=== PATIENT | male | born 1965 | race Caucasian/White ===

== ENCOUNTER → 2021-02-28 | Outpatient (CLI) | payer BC ==
[~2021-02-28] MED LIST: AZIT500T PO; BENZ200C25 PO; OFLO5DRO2 OP; PRCD5U PO
--- NOTE | 2021-02-28 16:23 | Diagnostic Imaging Report ---
CHEST PA/LAT (2 VIEW) Indication: Cough Comparison: None available. Findings: No pulmonary mass or consolidation. No pleural effusion or pneumothorax. Normal heart size and mediastinal contours. Impression: No acute cardiopulmonary process. Dictated by: Dictated on workstation # [id number]
== END ==
LOC: RAD 15:48
PROVIDERS: ATTEND Nurse Practitioner Family
DX: U07.1 COVID-19 (principal); J12.82 Pneumonia due to coronavirus disease 2019
CPT/HCPCS: 71046

== ENCOUNTER 2021-03-11 23:57 | Emergency (ER) | payer BC ==
[~2021-03-11] VITALS: Ht 180.3 cm; Wt 99.7 kg
--- OUTSIDE RECORDS SUMMARY | 2021-03-12 00:01 | XMS REPORT | Clinical Summary ---
Author Author [facility] Organization [facility] Address Unknown Phone Unavailable Care Team Providers Care Property Analyst Name Role Phone PCP Unavailable Allergies Not on File Medications Not on file Active Problems Not on file Social History Date Tobacco Use Types Packs/Day Years Used Never Assessed Sex Assigned at Date Recorded Not on file Last Filed Vital Signs Not on file Plan of Treatment Not on file Results Not on filefrom Last 3 Months
[2021-03-12 00:20] VITALS: BP 141/81
[2021-03-12 01:09] LABS: ALBUMIN 3.2 GM/DL (3.2-4.5)
[2021-03-12 01:12] LABS: TOTAL PROTEIN 7.2 GM/DL (6.4-8.2)
[2021-03-12 01:13] LABS: BILIRUBIN,TOTAL 2.1 MG/DL (0.1-1.0)
[2021-03-12 01:15] LABS: CREATININE SERUM 0.78 MG/DL (0.60-1.30)
[2021-03-12 01:22] LABS: BASOPHILS % (AUTO) 0 % (0-10); EOSINOPHILS % (AUTO) 0 % (0-10); HEMATOCRIT 42 % (40-54); HEMOGLOBIN 14.1 g/dL (13.3-17.7); LYMPHOCYTES # (AUTO) 1.1 10^3/uL (1.0-4.0); LYMPHOCYTES % (AUTO) 5 % (12-44); MEAN CORPUSCULAR HEMOGLOBIN 32 pg (25-34); MEAN CORPUSCULAR HGB CONC 34 g/dL (32-36); MEAN CORPUSCULAR VOLUME 94 fL (80-99); MEAN PLATELET VOLUME 12.3 fL (9.0-12.2); MONOCYTES % (AUTO) 9 % (0-12); NEUTROPHILS # (AUTO) 19.6 10^3/uL (1.8-7.8); NEUTROPHILS % (AUTO) 85 % (42-75); PLATELET COUNT 194 10^3/uL (130-400); WHITE BLOOD COUNT 23.2 10^3/uL (4.3-11.0)
--- NOTE | 2021-03-12 01:25 | ED General ---
General Chief Complaint: Respiratory Problems Stated Complaint: PREV COVID +/COUGH/CONGESTION/BLOODY MUCUS Nursing Triage Note: Pt arrives via POV from home for c/o cough/congestion; reports testing positive for COVID 14 days ago at [facility]. Pt states he has had persistant cough/congestion since that time, also states "I'm having pain in my ribs." while pointing to his right side. Source of Information: Patient Exam Limitations: No Limitations History of Present Illness Date Seen by Provider: Mar 12, 2021 Time Seen by Provider: 00:58 Initial Comments This 55-year-old gentleman presents to the emergency room with complaints of cough and right lower chest pain. He was diagnosed with COVID-19 about 2 weeks ago. He did seem to recover and returned to work but then a couple of days ago developed the pain in the right chest and cough. He is noted to have fever during assessment. He has coughed up some blood-tinged sputum. Allergies and Home Medications Allergies Coded Allergies: Bacitracin Zinc (Verified Allergy, Intermediate, RASH, 03/03/12) bacitracin (Verified Allergy, Intermediate, RASH, 03/03/12) neomycin sulfate (Verified Allergy, Intermediate, RASH, 03/03/12) polymyxin B (Verified Allergy, Intermediate, RASH, 03/03/12) Patient Home Medication List Home Medication List Reviewed: Yes Azithromycin (Zithromax) 500 Mg Tablet, 500 MG PO DAILY, (Reported) Entered as Reported by: BAKARI CHADWICK on 03/03/12 1225 Benzonatate (Benzonatate) 200 Mg Capsule, 1 EACH PO Q8HR PRN, (Reported) Entered as Reported by: BAKARI CHADWICK on 03/03/12 1225 Levofloxacin (Levofloxacin) 750 Mg Tablet, 750 MG PO DAILY Prescribed by: MARY CLEARY on 03/12/21 0355 Ofloxacin (Ofloxacin) 5 Ml Drops, 5 ML OP PRN, (Reported) Entered as Reported by: BAKARI CHADWICK on 03/03/12 1225 Promethazine/Codeine (Phenergan W/Codeine Syrup) 5 Ml Syrp, 0 PO Q4H Prescribed by: VASQUEZ DUMAS on 03/03/12 1317 Review of Systems Review of Systems Constitutional: see HPI EENTM: no symptoms reported Respiratory: see HPI Cardiovascular: no symptoms reported Gastrointestinal: no symptoms reported Genitourinary: no symptoms reported Musculoskeletal: no symptoms reported Skin: no symptoms reported Psychiatric/Neurological: No Symptoms Reported Hematologic/Lymphatic: No Symptoms Reported Immunological/Allergic: no symptoms reported Past Wlxtccn-Fihvik-Qtxxxt Hx Patient Social History Tobacco Use?: Yes Tobacco type used: Cigarettes Smoking Status: Current Everyday Smoker Use of E-Cig and/or Vaping dev: No Substance use?: No Alcohol Use?: No Pt feels they are or have been: No Immunizations Up To Date Influenza Vaccine Up-to-Date: No; Not Current Past Medical History Surgeries: Yes Abdominal (Right inguinal hernia), Orthopedic (left biceps) Respiratory: Yes (Covid 10 March 2019) Cardiac: No Neurological: No Genitourinary: Yes Benign Prostatic Hyperpl Gastrointestinal: No Musculoskeletal: No Endocrine: No HEENT: No Cancer: No Psychosocial: No Physical Exam-Suspected Sepsis Physical Exam Vital Signs Vital Signs - First Documented 03/12/21 00:20 Temp 39.4 Pulse 87 Resp 18 B/P (MAP) 141/81 (101) Pulse Ox 98 O2 Delivery Room Air Capillary Refill : Less Than 3 Seconds Blood Pressure Mean: 101 Height, Weight, BMI Height: '" Weight: lbs. oz. kg; 30.00 BMI Method: General Appearance: WD/WN, Mild Distress HEENT: PERRL/EOMI, Normal ENT Inspection Neck: Normal Inspection; No JVD Respiratory: No Accessory Muscle Use, No Respiratory Distress, Crackles (right base) Cardiovascular: Regular Rate, Rhythm, No Edema Gastrointestinal: Non Tender, Soft Extremity: Normal Inspection, No Pedal Edema Neurologic/Psychiatric: Alert, Oriented x3, No Motor/Sensory Deficits, Normal Mood/Affect, bronc buster II-XII Norm as Tested Skin: normal color, warm/dry Focused Exam Lactate Level 03/12/21 00:45: Lactic Acid Level 0.89 Lactic Acid Level Laboratory Tests Test 03/12/21 00:45 Lactic Acid Level 0.89 MMOL/L (0.50-2.00) Progress/Results/Core Measures Suspected Sepsis SIRS Temperature: Pulse: 87 Respiratory Rate: 18 Laboratory Tests 03/12/21 00:45: White Blood Count 23.2H Blood Pressure 141 /81 Mean: 101 03/12/21 00:45: Lactic Acid Level 0.89 Laboratory Tests 03/12/21 00:45: Creatinine 0.78, INR Comment 1.1, Platelet Count 194, Total Bilirubin 2.1H Results/Orders Lab Results Laboratory Tests Test 03/12/21 00:45 03/12/21 01:25 Range/Units White Blood Count 23.2 H 4.3-11.0 10^3/uL Red Blood Count 4.41 4.30-5.52 10^6/uL Hemoglobin 14.1 13.3-17.7 g/dL Hematocrit 42 40-54 % Mean Corpuscular Volume 94 80-99 fL Mean Corpuscular Hemoglobin 32 25-34 pg Mean Corpuscular Hemoglobin Concent 34 32-36 g/dL Red Cell Distribution Width 12.0 10.0-14.5 % Platelet Count 194 130-400 10^3/uL Mean Platelet Volume 12.3 H 9.0-12.2 fL Immature Granulocyte % (Auto) 2 % Neutrophils (%) (Auto) 85 H 42-75 % Lymphocytes (%) (Auto) 5 L 12-44 % Monocytes (%) (Auto) 9 0-12 % Eosinophils (%) (Auto) 0 0-10 % Basophils (%) (Auto) 0 0-10 % Neutrophils # (Auto) 19.6 H 1.8-7.8 10^3/uL Lymphocytes # (Auto) 1.1 1.0-4.0 10^3/uL Monocytes # (Auto) 2.0 H 0.0-1.0 10^3/uL Eosinophils # (Auto) 0.0 0.0-0.3 10^3/uL Basophils # (Auto) 0.0 0.0-0.1 10^3/uL Immature Granulocyte # (Auto) 0.4 H 0.0-0.1 10^3/uL Neutrophils % (Manual) 81 % Lymphocytes % (Manual) 7 % Monocytes % (Manual) 10 % Band Neutrophils 2 % Blood Morphology Comment NORMAL Prothrombin Time 14.9 H 12.2-14.7 SEC INR Comment 1.1 0.8-1.4 Activated Partial Thromboplast Time 32 24-35 SEC D-Dimer 2.29 H 0.00-0.49 UG/ML Sodium Level 125 *L 135-145 MMOL/L Potassium Level 4.0 3.6-5.0 MMOL/L Chloride Level 90 L 98-107 MMOL/L Carbon Dioxide Level 26 21-32 MMOL/L Anion Gap 9 5-14 MMOL/L Blood Urea Nitrogen 12 7-18 MG/DL Creatinine 0.78 0.60-1.30 MG/DL Estimat Glomerular Filtration Rate 104 BUN/Creatinine Ratio 15 Glucose Level 128 H 70-105 MG/DL Lactic Acid Level 0.89 0.50-2.00 MMOL/L Calcium Level 9.0 8.5-10.1 MG/DL Corrected Calcium 9.6 8.5-10.1 MG/DL Total Bilirubin 2.1 H 0.1-1.0 MG/DL Aspartate Amino Transf (AST/SGOT) 18 5-34 U/L Alanine Aminotransferase (ALT/SGPT) 31 0-55 U/L Alkaline Phosphatase 123 40-136 U/L C-Reactive Protein High Sensitivity 32.72 H 0.00-0.50 MG/DL Total Protein 7.2 6.4-8.2 GM/DL Albumin 3.2 3.2-4.5 GM/DL Procalcitonin 0.82 H <0.10 NG/ML Influenza Type A Antigen NEGATIVE NEGATIVE Influenza Type B Antigen NEGATIVE NEGATIVE SARS-CoV-2 RNA (RT-PCR) Detected H Not Detecte My Orders Orders - MARY TAYLOR MD Cbc With Automated Diff (03/12/21 00:58) Comprehensive Metabolic Panel (03/12/21 00:58) Fibrin Degradation Products (03/12/21 00:58) Procalcitonin (Pct) (03/12/21 00:58) Hs C Reactive Protein (03/12/21 00:58) Chest 1 View, Ap/Pa Only (03/12/21 00:58) Ed Iv/Invasive Line Start (03/12/21 00:58) Influenza A & B Antigens (03/12/21 00:59) Blood Culture (03/12/21 01:21) Sputum Culture (03/12/21 01:21) Protime With Inr (03/12/21 01:21) Partial Thromboplastin Time (03/12/21 01:21) Vital Signs Adult Sepsis Patie Q15M (03/12/21 01:21) Remove Rings In Anticipation O (03/12/21 01:21) Lactic Acid Analyzer (03/12/21 01:21) Ns Iv 1000 Ml (Sodium Chloride 0.9%) (03/12/21 01:30) Acetaminophen Tablet (Tylenol Tablet) (03/12/21 01:30) Manual Differential (03/12/21 00:45) Ct Angio Chest W (03/12/21 01:55) Covid 19 Inhouse Test (03/12/21 01:58) Cefepime Injection (Maxipime Injection) (03/12/21 02:30) Iohexol Injection (Omnipaque 350 Mg/Ml 1 (03/12/21 03:15) Received Contrast (Hold Metformin- Contr (03/12/21 03:15) Ns (Ivpb) (Sodium Chloride 0.9% Ivpb Bag (03/12/21 03:15) Medications Given in ED Current Medications Medications Dose Ordered Sig/Elena Route Start Time Stop Time Status Last Admin Dose Admin Acetaminophen 1,000 mg ONCE ONCE PO 03/12/21 01:30 03/12/21 01:31 DC 03/12/21 01:40 1,000 MG Cefepime HCl 2000 mg/Sodium Chloride 50 ml @ 100 mls/hr ONCE ONCE IV 03/12/21 02:30 03/12/21 02:59 DC 03/12/21 02:30 100 MLS/HR Iohexol 100 ml ONCE ONCE IV 03/12/21 03:15 03/12/21 03:21 DC 03/12/21 03:10 100 ML Sodium Chloride 100 ml ONCE ONCE IV 03/12/21 03:15 03/12/21 03:21 DC 03/12/21 03:10 80 ML Vital Signs/I&O 03/12/21 03/12/21 00:20 00:20 Temp 39.4 Pulse 87 Resp 18 B/P (MAP) 141/81 (101) Pulse Ox 98 O2 Delivery Room Air Room Air Capillary Refill : Less Than 3 Seconds Blood Pressure Mean: 101 Progress Note : Progress Note Patient was found to have a right lower lobe pneumonia with effusion and masslike consolidation. CT angiogram revealed no pulmonary emboli. He was treated with a dose of cefepime. We discussed admission but patient declined as his vital signs were stable. He was not hypoxic or hypotensive. He was not in any respiratory distress. He would like to try management of this at home. Blood cultures were drawn prior to antibiotic administration. Levaquin was prescribed. I did review CT findings with the patient and stressed the importance of follow-up to ensure clearance of the abnormal findings. He expressed understanding. A pulse oximeter was dispensed. Return precautions discussed. Patient was discharged home in stable condition. Diagnostic Imaging Diagonstic Imaging: Xray Plain Films/CT/US/NM/MRI: chest Comments Chest x-ray viewed by me and report not yet available. Right lower lobe infiltrate evident. Diagonstic Imaging: CT Plain Films/CT/US/NM/MRI: chest Comments CT angiogram chest viewed by me and stat rad report reviewed. There is a right pleural effusion and masslike consolidation in the right lower lobe likely representing pneumonia. Mass cannot be ruled out. See report for full details. No pulmonary emboli were noted. Departure Impression Primary Impression: Right lower lobe pneumonia Qualified Codes: J18.9 - Pneumonia, unspecified organism Additional Impressions: COVID-19 Hyponatremia Pleural effusion, right Disposition: 01 HOME, SELF-CARE Condition: Stable Departure-Patient Inst. Decision time for Depature: 03:49 Referrals: NO,LOCAL PHYSICIAN (PCP/Family) Primary Care Physician Patient Instructions: Pneumonia, Adult (DC) Add. Discharge Instructions: You have a right lower lung pneumonia in addition to COVID-19. Please complete the antibiotics as prescribed. Remain in quarantine for another 5 days. You may return to work on Monday, March 17 if you are free of fever for at least 24 hours without taking fever reducing medications. For pain or fever you may use Tylenol (acetaminophen) up to 1000 mg every 6 hours as needed and/or ibuprofen up to 600 mg every 6 hours as needed. Check your your oxygen saturation often. Return to the ER if you have repeated measurements less than 92% or any measurements less than 90%. In addition to pneumonia you have a masslike appearance and fluid collection in your right lung. You need to follow-up with a primary care provider after about 2 weeks and repeat imaging to ensure these findings clear with antibiotic therapy. If these findings do not clear after antibiotic therapy, it may mean there is a more serious illness such as tumor or cancer that needs further evaluation. Your sodium is low. Lightly salt your food for a few days to help improve your sodium level. Call with questions or concerns. Return to the ER if you have worsening symptoms. All discharge instructions reviewed with patient and/or family. Voiced understanding. Scripts Levofloxacin (Levofloxacin) 750 Mg Tablet 750 MG PO DAILY, #7 TAB Prov: MARY TAYLOR MD 03/12/21 Work/School Note: Work Release Form Date Seen in the Emergency Department: Mar 12, 2021 Return to Work: Mar 17, 2021 Restrictions: Return-No Fever (24hrs) MARY TAYLOR MD Mar 12, 2021 01:25
[2021-03-12] MEDS ORDERED: ACETAMINOPHEN 500 MG TAB (TYLENOL) PO ONE (01:30)
[2021-03-12] MEDS ORDERED: NS IV 1000 ML 1,000 ML IV SCH (01:30)
[2021-03-12 01:37] LABS: INR 1.1 (0.8-1.4); PROTHROMBIN TIME PATIENT 14.9 SEC (12.2-14.7)
[2021-03-12 02:29] LABS: BAND NEUTROPHILS 2 %; LYMPHOCYTES % (MANUAL) 7 %; MONOCYTES % (MANUAL) 10 %; NEUTROPHILS % (MANUAL) 81 %; RBC MORPH NORMAL
[2021-03-12] MEDS ORDERED: CEFEPIME INJECTION 2,000 MG in NS (IVPB) 50 ML IV ONE (02:30)
[2021-03-12] MEDS ORDERED: NS 100 ML (IVPB) BAG IV ONE (03:15)
[2021-03-12] MEDS ORDERED: IOHEXOL 350 MG/ML 100 ML (OMNIPAQUE 350) VIAL IV ONE (03:15)
[2021-03-12] MEDS ORDERED: HOLD METFORMIN - RECEIVED CONTRAST 20 ML VIAL IV SCH (03:15)
[2021-03-12] MEDS ORDERED: LEVO750T39 PO (03:55)
--- NOTE | 2021-03-12 06:08 | Diagnostic Imaging Report ---
PROCEDURE: CT angiography of the chest with contrast. TECHNIQUE: Multiple contiguous axial images were obtained through the chest after uneventful bolus administration of intravenous contrast. 3D reconstructed CTA MIP acquisitions were also performed. Auto Exposure Controls were utilized during the CT exam to meet ALARA standards for radiation dose reduction. INDICATION: Cough. Pneumonia. Covid positive. COMPARISON: Chest radiograph performed earlier the same date. FINDINGS: This helical CT pulmonary angiogram is diagnostic to the subsegmental level branches of the pulmonary artery and demonstrates no pulmonary emboli. The heart and great vessels are unremarkable. There is no pericardial effusion. Prominent lymph nodes are seen in the mediastinum. A small right pleural effusion is seen with consolidative opacities in the right middle and lower lobes. A small amount of dependent atelectasis is seen in the left lung base. No central endobronchial obstructing lesions. No pneumothorax. Osseous structures appear normal. Limited views of the upper abdomen are unremarkable. IMPRESSION: 1. No acute pulmonary embolus. 2. Pneumonia involving the right middle and lower lobes with associated small pleural effusion. Agree with overnight report. Dictated by: Dictated on workstation # [id number]
--- NOTE | 2021-03-12 07:26 | Diagnostic Imaging Report ---
INDICATION: Cough. Covid positive. Comparison made with prior study from 02/28/2021. FINDINGS: There is dense consolidation present within the right lung base with an associated right-sided effusion. The left lung appears to be clear. There is no pneumothorax. Heart size and mediastinal contours are appropriate. Pulmonary vascularity appears normal. IMPRESSION: Dense right basilar consolidation with right-sided effusion compatible with pneumonia. Dictated by: Dictated on workstation # [id number]
== END 2021-03-12 04:06 | disposition home or self-care (01) ==
LOC: EDUNIT# 23:57 → ER 23:58
DX: U07.1 COVID-19 (principal); J18.1 Lobar pneumonia, unspecified organism; E87.1 Hypo-osmolality and hyponatremia; J90 Pleural effusion, not elsewhere classified; F17.210 Nicotine dependence, cigarettes, uncomplicated
CPT/HCPCS: 36415; 71045; 71275; 80053; 83605; 84145; 85007; 85027; 85379; 85610; 85730; 86141; 87040; 87636; 87804

== ENCOUNTER 2021-03-17 15:44 | Emergency (ER) | payer BC ==
[~2021-03-17] VITALS: Ht 180 cm; Wt 100.0 kg
[~2021-03-17 15:44] MED LIST changes: +LEVO750T39 PO
--- NOTE | 2021-03-17 16:46 | ED Lower Extremity ---
General Chief Complaint: Lower Extremity Stated Complaint: PNEUMONIA FEET SWELLING Nursing Triage Note: AMB TO ED REPORTS WAS DX WITH COVID ON FEB 20 AT [facility]RG[facility] WAS SEEN IN ED ON 03/12VD WITH PNEUMONIA GIVEN LEVAQUIN AT THAT TIME FEET STARTE SWELLING 2 DAYS AGO. (JAKE ALVAREZ STUDENT) History of Present Illness Date Seen by Provider: Mar 17, 2021 Time Seen by Provider: 16:30 Initial Comments Patient is a 55yoM who presents with chief complaint of b/l foot and ankle swelling that began yesterday. Patient was diagnosed with Covid at [facility] on 02/26/21, came to [facility] on 03/12/21 and was found to have a RLL pneumonia. Admission was discussed but patient was not hypoxic and wanted to go home so was instructed to return with any worsening symptoms. He was sent home on Levaquin and has taken it as prescribed but read that swelling can be a side effect of the medication so he came in for evaluation. He continues to have a productive cough with pink sputum but he is not hypoxic. He feels like he needs some time off of work to finally recover from all of this. Kidney function will be asses sed and Levaquin will be switched to Augmentin. Onset: yesterday Severity: moderate Pain/Injury Location: bilateral foot (edema), bilateral ankle (JAKE ALVAREZ STUDENT) Allergies and Home Medications Allergies Coded Allergies: Bacitracin Zinc (Verified Allergy, Intermediate, RASH, 03/03/12) bacitracin (Verified Allergy, Intermediate, RASH, 03/03/12) neomycin sulfate (Verified Allergy, Intermediate, RASH, 03/03/12) polymyxin B (Verified Allergy, Intermediate, RASH, 03/03/12) Patient Home Medication List Home Medication List Reviewed: Yes (SAMIR MARTINEZ MD) Amoxicillin/Potassium Clav (Augmentin 875-125 Tablet) 1 Each Tablet, 1 EACH PO BID Prescribed by: SAMIR MARTINEZ on 03/17/21 1720 Azithromycin (Zithromax) 500 Mg Tablet, 500 MG PO DAILY, (Reported) Entered as Reported by: BAKARI CHADWICK on 03/03/12 1225 Benzonatate (Benzonatate) 200 Mg Capsule, 1 EACH PO Q8HR PRN, (Reported) Entered as Reported by: BAKARI CHADWICK on 03/03/12 1225 Levofloxacin (Levofloxacin) 750 Mg Tablet, 750 MG PO DAILY Prescribed by: MARY CLEARY on 03/12/21 0355 Ofloxacin (Ofloxacin) 5 Ml Drops, 5 ML OP PRN, (Reported) Entered as Reported by: BAKARIWELLINGTON CHADWICK on 03/03/12 1225 Promethazine/Codeine (Phenergan W/Codeine Syrup) 5 Ml Syrp, 0 PO Q4H Prescribed by: VASQUEZ DUMAS on 03/03/12 1317 Review of Systems Constitutional: No chills, No diaphoresis, No dizziness, No fever; weakness EENTM: No nose congestion, No throat pain Respiratory: cough, short of breath, other (bloody sputum) Cardiovascular: No chest pain; edema; No palpitations Gastrointestinal: No abdominal pain, No constipation, No diarrhea, No nausea, No vomiting Genitourinary: No dysuria, No frequency, No hematuria Musculoskeletal: No joint pain, No muscle stiffness Skin: no symptoms reported Psychiatric/Neurological: No Symptoms Reported (JAKE ALVAREZ STUDENT) Past Nobdwqw-Hffosn-Aihbsk Hx Patient Social History Tobacco Use?: Yes (JAKE ALVAREZ K[employer] STUDENT) Past Medical History Surgeries: Yes Abdominal, Orthopedic Respiratory: Yes (Covid 10 March 2019) Cardiac: No Neurological: No Genitourinary: Yes Benign Prostatic Hyperpl Gastrointestinal: No Musculoskeletal: No Endocrine: No HEENT: No Cancer: No Psychosocial: No (JAKE ALVAREZ Ketto STUDENT) Physical Exam Vital Signs Vital Signs - First Documented 03/17/21 16:15 Pulse 86 Resp 18 B/P (MAP) 133/70 (91) Pulse Ox 94 O2 Delivery Room Air (SAMIR MARTINEZ MD) Vital Signs Capillary Refill : Less Than 3 Seconds (JAKE ALVAREZ STUDENT) Height, Weight, BMI Height: '" Weight: lbs. oz. kg; 30.00 BMI Method: General Appearance: WD/WN HEENT: PERRL/EOMI, pharynx normal Neck: non-tender, full range of motion, supple, normal inspection Cardiovascular: normal peripheral pulses, regular rate, rhythm, no JVD Respiratory: chest non-tender, no respiratory distress, no accessory muscle use, crackles (BROADHURST,JAKE MED STUDENT) Progress/Results/Core Measures Results/Orders Lab Results Laboratory Tests Test 03/17/21 17:02 Range/Units Sodium Level 131 L 135-145 MMOL/L Potassium Level 3.9 3.6-5.0 MMOL/L Chloride Level 92 L 98-107 MMOL/L Carbon Dioxide Level 31 21-32 MMOL/L Anion Gap 8 5-14 MMOL/L Blood Urea Nitrogen 8 7-18 MG/DL Creatinine 0.64 0.60-1.30 MG/DL Estimat Glomerular Filtration Rate 110 BUN/Creatinine Ratio 13 Glucose Level 109 H 70-105 MG/DL Calcium Level 8.3 L 8.5-10.1 MG/DL (SAMIR MARTINEZ MD) My Orders Orders - SAMIR MARTINEZ MD Basic Metabolic Panel (03/17/21 16:40) (SAMIR MARTINEZ MD) Vital Signs/I&O 03/17/21 16:15 Pulse 86 Resp 18 B/P (MAP) 133/70 (91) Pulse Ox 94 O2 Delivery Room Air (SAMIR MARTINEZ MD) Blood Pressure Mean: 91 Progress Progress Note : Time: 17:21 Progress Note Patient is a 55-year-old male recently diagnosed with Covid at the beginning of the month, came back in on the diagnosed with concomitant bacterial pneumonia. Placed on Levaquin. States he has been taking his medication, last night noticed a significant swelling in his ankles and feet. Read the drug insert for Levaquin and was concerned that Levaquin was causing the swelling. Denies increasing shortness of breath, fever or chest pain. Still having purulent sputum that is slightly pink-tinged. Overall feeling better. Mainly concerned about the edema. Physical exam remarkable for fine crackles in the bilateral lower lobes. Normal oxygen saturations, no distress. 2+ pitting edema in the ankles and feet with 1+ in the calves. Assessment we will check a renal function panel to make sure that the Levaquin has not altered his kidney function. Plan to switch him over to Augmentin 875 twice daily for 7 days pending normal renal function. (SAMIR MARTINEZ MD) Departure Impression Primary Impression: Lower extremity edema Disposition: 01 HOME, SELF-CARE Condition: Stable Departure-Patient Inst. Referrals: NO,LOCAL PHYSICIAN (PCP/Family) Primary Care Physician Patient Instructions: Dependent Edema (DC) Add. Discharge Instructions: Stop the Levaquin. Elevate your legs at night when sleeping to try and reduce swelling. Avoid extra salt in your diet and soda drinks. Start the Augmentin 875mg twice a day for 7 days. Follow up as previously directed with your PCP. Return to the ER for re-evaluation if you have any new, emergent or concerning symptoms. Scripts Amoxicillin/Potassium Clav (Augmentin 875-125 Tablet) 1 Each Tablet 1 EACH PO BID, #14 TAB 0 Refills Prov: SAMIR MARTINEZ MD 03/17/21 Work/School Note: Work Release Form Date Seen in the Emergency Department: Mar 17, 2021 Return to Work: Mar 23, 2021 Verification and Attestation of Medical Student E/M Service A medical student performed and documented this service in my presence. I reviewed and verified all information documented by the medical student and made modifications to such information, when appropriate. I personally performed the physical exam and medical decision making. Samir Martinez, Mar 17, 2021,17:20 (SAMIR MARTINEZ MD) JAKE ALVAREZ MED STUDENT Mar 17, 2021 16:46 SAMIR MARTINEZ MD Mar 17, 2021 17:22
[2021-03-17] MEDS ORDERED: AMOX-358 PO (17:20)
[2021-03-17 17:33] LABS: POTASSIUM 3.9 MMOL/L (3.6-5.0)
[2021-03-17 17:34] LABS: CALCIUM 8.3 MG/DL (8.5-10.1)
[2021-03-17 17:39] LABS: CREATININE SERUM 0.64 MG/DL (0.60-1.30)
[2021-03-17 18:00] VITALS: BP 133/70
== END 2021-03-17 18:06 | disposition home or self-care (01) ==
LOC: EDUNIT# 15:44 → ER 15:47
DX: R60.0 Localized edema (principal); Z86.16 Personal history of COVID-19; Z72.0 Tobacco use
CPT/HCPCS: 36415; 80048; 99281

== ENCOUNTER 2021-04-22 05:42 | Outpatient (CLI) | payer BC ==
[~2021-04-22] VITALS: Ht 180.3 cm; Wt 95.0 kg
[~2021-04-22 05:42] MED LIST changes: +AMOX-358 PO
[2021-04-22] MEDS ORDERED: ZINC50TA51 PO (11:23)
[2021-04-22] MEDS ORDERED: MV-M1TAB20 PO (11:23)
[2021-04-22] MEDS ORDERED: BUDE10.7 IH (11:23)
[2021-04-22] MEDS ORDERED: TORS20TA3 PO (11:23)
[2021-04-22] MEDS ORDERED: HYDR25TA4 PO (11:23)
[2021-04-22] MEDS ORDERED: vitamin c (11:23)
[2021-04-22] MEDS ORDERED: FINA5TAB6 PO ×2 (11:23→16:00)
[2021-04-22] MEDS ORDERED: CITA10TA9 PO (11:23)
[2021-04-22] MEDS ORDERED: CALC-250 PO (16:00)
[2021-04-22] MEDS ORDERED: ASCO500C17 PO (16:00)
[2021-04-22] MEDS ORDERED: ASPI-479 PO (16:00)
== END 2021-04-22 16:18 | disposition home or self-care (01) ==
LOC: PREOP 05:42
PROVIDERS: ATTEND Surgery
DX: Z01.818 Encounter for other preprocedural examination (principal)

== ENCOUNTER 2021-04-29 09:54 | Day surgery (SDC) | payer BC ==
[2021-04-29] VITALS (11 sets, daily range): BP systolic 124–181; BP diastolic 77–106
[~2021-04-29 09:54] MED LIST changes: +ASCO500C17 PO; +ASPI-479 PO; +BUDE10.7 IH; +CALC-250 PO; +CITA10TA9 PO; +FINA5TAB6 PO; +HYDR25TA4 PO; +MV-M1TAB20 PO; +TORS20TA3 PO; +ZINC50TA51 PO; +vitamin c
[2021-04-29] MEDS ORDERED: ceFAZolin 2 GM IV Premixed 50 ML IV ONE (10:00)
[2021-04-29] MEDS: LACTATED RINGERS 1,000 ML IV PRN ×2 (10:26→15:03)
[2021-04-29] MEDS ORDERED: LIDOCAINE/EPI 1%-1:200,000 (XYLOCAINE) 30 ML VIAL ONE (14:22)
--- NOTE | 2021-04-29 14:26 | Progress Note-Pre Operative ---
Pre-Operative Progress Note H&P Reviewed The H&P was reviewed, patient examined and no changes noted. Date Seen by Provider: Apr 29, 2021 Time Seen by Provider: 14:26 Date H&P Reviewed: Apr 29, 2021 Time H&P Reviewed: 14:26 Pre-Operative Diagnosis: UMBILICAL HERNIA AYANA TRAN DO Apr 29, 2021 14:26
[2021-04-29] MEDS ORDERED: fentaNYL INJ 100 MCG/2 ML AMP ONE (14:35)
[2021-04-29] MEDS ORDERED: MIDAZOLAM 2 MG/2 ML (VERSED) VIAL ONE (14:36)
[2021-04-29] MEDS ORDERED: ROCURONIUM 10 MG/ML 5 ML SYRINGE IV ONE (15:26)
[2021-04-29] MEDS ORDERED: ONDANSETRON 4 MG/2 ML (SDV) Z0FRAN ONE (15:26)
[2021-04-29] MEDS ORDERED: SEVOFLURANE (ULTANE) 15 ML INHAL SOLN ONE (15:26)
[2021-04-29] MEDS ORDERED: proPOfol 200 MG/20 ML (DIPRIVAN) VIAL IV ONE (15:26)
[2021-04-29] MEDS ORDERED: HYDROmorphone 2 MG/ML VIAL (DILAUDID) ONE (16:29)
--- NOTE | 2021-04-29 16:29 | Anesthesia-General Post-Op ---
General Patient Condition Mental Status/LOC: Same as Preop Cardiovascular: Satisfactory Nausea/Vomiting: Absent Respiratory: Satisfactory Pain: Controlled Complications: Absent Post Op Complications Complications None Follow Up Care/Instructions Patient Instructions None needed. Anesthesia/Patient Condition Patient Condition Patient is doing well, no complaints, stable vital signs, no apparent adverse anesthesia problems. No complications reported per nursing. SHABBIR MORALES CRNA Apr 29, 2021 16:29
[2021-04-29] MEDS ORDERED: fentaNYL INJ 100 MCG/2 ML AMP IVP ONE (16:30)
[2021-04-29] MEDS ORDERED: morphine INJ 10 MG/ML 1ML (SYR OR VIAL) IVP ONE (16:30)
[2021-04-29] MEDS ORDERED: MEPERIDINE (DEMEROL) INJ 50 MG/ML IVP ONE (16:30)
[2021-04-29] MEDS ORDERED: HYDROmorphone 2 MG/ML VIAL (DILAUDID) IV ONE (16:30)
[2021-04-29] MEDS ORDERED: DOCU-143 PO (16:43)
[2021-04-29] MEDS ORDERED: ACHD5005 PO (16:43)
--- NOTE | 2021-04-29 16:44 | Discharge Inst-Simple/Standard ---
Discharge Inst-Standard Discharge Medications New, Converted or Re-Newed RX: Transmitted to Pharmacy Patient Instructions/Follow Up Plan of Care/Instructions/FU: 2 weeks [place] Activity as Tolerated: No Discharge Diet: Regular Diet Other Inst to Patient Follow up Appt: Make appointment for 2 week. Instructions: No lifting greater than 10 pounds. No strenuous activity. May shower in 24 hours, no tub bath or soaking. Use incentive spirometer at home as directed. No Smoking Skin/Wound Care: You have special glue over your incision that will fall off on it's own. Symptoms to Report: Appetite Changes, Extremity Discoloration, Numbness/Tingling, Swelling Increased, Bleeding Excessive, Eyesight Changes, Pain Increased, Urine Color Change, Constipation(Persistent), Fever over 101 degree F, Pain/Pressure in chest, Urinating Difficulty, Cough Up/Vomit Blood, Heart Beat Irreg/Pounding, Pain/Pressure in jaw, Vaginal Bleeding Increase, Cramps in feet or legs, Lightheadedness, Pain/Pressure in shoulder, Diarrhea(Persistent), Memory Changes Suddenly, Questions/Concerns, Weight gain consecutive days, Dizziness/Fainting, Nausea/Vomiting, Shortness of Breath, Weight gain over 2 pounds If questions or concerns contact your physician Or seek help at emergency department. AYANA TRAN DO Apr 29, 2021 16:44
--- NOTE | 2021-04-29 16:45 | Progress Note-Post Operative ---
Post-Operative Progess Note Surgeon (s)/Crisis Intervention Specialist (s) Surgeon AYANA TRAN DO Crisis Intervention Specialist: Dr. Latif Pre-Operative Diagnosis UMBILICAL HERNIA Post-Operative Diagnosis incarcerated umbilical hernia Procedure & Operative Findings Date of Procedure 04/29/21 Procedure Performed/Findings robotic incarcerated umbilical hernia repair Anesthesia Type general Estimated Blood Loss Estimated blood loss (mL): minimal Specimens/Packing Specimens Removed na AYANA TRAN DO Apr 29, 2021 16:45
[2021-04-29] MEDS: ONDANSETRON 4 MG/2 ML (SDV) Z0FRAN IVP PRN ×2 (17:24→17:25)
[2021-04-29] MEDS ORDERED: HYDROcodone/APAP 5 MG/325 MG (LORTAB) TAB PO ONE (17:30)
--- NOTE | 2021-04-30 00:25 | OPERATIVE REPORT ---
DATE OF SERVICE: 04/29/2021 PREOPERATIVE DIAGNOSIS: Umbilical hernia. POSTOPERATIVE DIAGNOSIS: Incarcerated umbilical hernia. SURGEON: Ayana Conrad DO PRIMARY CARE PEDIATRICIAN: Dr. Latif, assisted in retraction, dissection and closure. ANESTHESIA: General. ESTIMATED BLOOD LOSS: Minimal. COMPLICATIONS: None. INDICATIONS: The patient is a 55-year-old male with an umbilical hernia. He understands risks and benefits of procedure and wishes to proceed. Consent was signed in the chart. DESCRIPTION OF PROCEDURE: The patient was taken to the operating suite, was prepped and draped in sterile fashion. Surgical pause was performed. Local anesthetic was infiltrated in left upper quadrant. An 11-blade scalpel was used to make a skin incision. Cautery used to dissect down to the fascia, which was then divided. The muscle was divided bluntly. The posterior fascia was then divided and enter into the abdomen. A balloon trocar was inserted, and pneumoperitoneum was achieved. Under direct visualization of the laparoscope, two 8 mm trocars were placed along the left side of the abdomen. Visualized an incarcerated umbilical hernia that consisted of omentum. The robot was then docked in the usual fashion. The hernia contents were then taken down. The falciform ligament was then divided. The fat pad was taken down inferiorly with scissors with cautery. Once this was performed, the hernia defect was then closed using 0 permanent V-Loc in a running fashion. A stab incision was made at the umbilicus. Bradley-Katheryn was then placed and Ventralight Echo 4-1/2-inch round mesh was inserted and grasped and placed into position. This was then secured circumferentially with 2-0 V-Loc 180. The balloon was then removed and 2-0 V-Loc was continued to be ran down the middle of the mesh as well giving adequate coverage. The needles were removed. The abdomen was then desufflated. The trocars were removed. The fascial defect of 12 mm trocar site was then closed with 0 Vicryl in [id number] fashion. Skin was then closed using 4-0 Monocryl in a running subcuticular fashion. Then, the abdomen was then washed and dried and Skin Affix was placed over the incisions. The patient tolerated procedure well without any complications, was taken to recovery room in stable condition. Job ID: [id number] DocumentID: [id number] Dictated Date: 04/29/2021 20:33:01 Baggage Porter Date: 04/30/2021 00:24:47 Dictated By: AYANA CONRAD DO
== END 2021-04-29 18:25 | disposition home or self-care (01) ==
LOC: SDC 09:54
PROVIDERS: ATTEND Surgery
DX: K42.0 Umbilical hernia with obstruction, without gangrene (principal); F17.210 Nicotine dependence, cigarettes, uncomplicated; Z79.82 Long term (current) use of aspirin; Z86.16 Personal history of COVID-19
CPT/HCPCS: 49653; 87081; 94664; C1781

== ENCOUNTER 2022-03-29 18:33 | Emergency (ER) | payer BC ==
[~2022-03-29] VITALS: Ht 180.3 cm; Wt 98.8 kg
[~2022-03-29 18:33] MED LIST changes: +ACHD5005 PO; +DOCU-143 PO; +LEVO750T PO; -LEVO750T39 PO
--- NOTE | 2022-03-29 20:08 | ED Cough/URI ---
General Chief Complaint: Cough/Cold/Flu Symptoms Stated Complaint: SINUS CONGESTION Nursing Triage Note: PT AMB TO RM 10 WITH CC OF CONGESTION, COUGH AND "SINUS INFECTION" SINCE MONDAY. PT STATES HIS GIRLFRIEND IS ALSO SICK. DENIES FEVER Source: patient Exam Limitations: no limitations History of Present Illness Date Seen by Provider: Mar 29, 2022 Time Seen by Provider: 19:30 Initial Comments Patient is a 56-year-old male who presents the emergency department for evaluation of cough and congestion since Monday. States his girlfriend is also sick. Denies any fever. Denies any chest pain or shortness of breath. States he has not taken any medications today for the symptoms. Allergies and Home Medications Allergies Coded Allergies: doxycycline (Verified Allergy, Severe, 04/29/21) FEET SWELLING Bacitracin Zinc (Verified Allergy, Intermediate, RASH, 04/29/21) bacitracin (Verified Allergy, Intermediate, RASH, 04/29/21) neomycin sulfate (Verified Allergy, Intermediate, RASH, 04/29/21) polymyxin B (Verified Allergy, Intermediate, RASH, 04/29/21) influenza virus vac qs 20-21(4 yr up) cell derived (Verified Allergy, Un known, 04/29/21) Patient Home Medication List Home Medication List Reviewed: Yes Ascorbic Acid (Vitamin C) 500 Mg Capsule, 500 MG PO DAILY, (Reported) Entered as Reported by: MARLEN CRUM on 04/22/21 1600 Aspirin (Adult Low Dose Aspirin EC) 81 Mg Tablet.dr, 81 MG PO DAILY, (Reported) Entered as Reported by: MARLEN CRUM on 04/22/21 1600 Cholecalciferol (Vitamin D3) (Vitamin D3) 125 Mcg Tablet, 125 MCG PO, (Reported) Entered as Reported by: MARLEN CRUM on 04/22/21 1600 Citalopram Hydrobromide (Citalopram HBr) 10 Mg Tablet, 10 MG PO DAILY, (Reported) Entered as Reported by: ALEXIS WOLF on 04/22/21 1123 Docusate Sodium (Colace) 100 Mg Capsule, 100 MG PO BID Prescribed by: AYANA TRAN on 04/29/21 1643 Finasteride (Finasteride) 5 Mg Tablet, 5 MG PO DAILY, (Reported) Entered as Reported by: MARLEN CRUM on 04/22/21 1600 Hydrocodone/Acetaminophen (Hydrocodone-Acetamin 5-325 mg) 1 Each Tablet, 1 EACH PO Q4H PRN for PAIN-MODERATE (5-7) Prescribed by: AYANA TRAN on 04/29/21 1643 Torsemide (Torsemide) 20 Mg Tablet, 20 MG PO DAILY, (Reported) Entered as Reported by: ALEXIS WOLF on 04/22/21 1123 Zinc Amino Acid Chelate (Zinc) 50 Mg Tablet, 50 MG PO DAILY, (Reported) Entered as Reported by: ALEXIS WOLF on 04/22/21 1123 Review of Systems Review of Systems Constitutional: no symptoms reported EENTM: no symptoms reported Respiratory: no symptoms reported Cardiovascular: no symptoms reported Gastrointestinal: no symptoms reported Genitourinary: no symptoms reported Musculoskeletal: no symptoms reported Skin: no symptoms reported Psychiatric/Neurological: No Symptoms Reported Hematologic/Lymphatic: No Symptoms Reported Immunological/Allergic: no symptoms reported Past Xrdhofw-[id number] Hx Patient Social History Tobacco Use?: Yes Tobacco type used: Cigarettes Smoking Status: Current Everyday Smoker Substance use?: No Alcohol Use?: No Pt feels they are or have been: No Immunizations Up To Date Influenza Vaccine Up-to-Date: No; Not Current Seasonal Allergies Seasonal Allergies: Yes (INHALERS WHEN NEEDED) Past Medical History Surgery/Hospitalization HX: HERNIA Surgeries: Yes (LOWER RT ING HERNIA REPAIR, LEFT SHOULDER X2) Abdominal Respiratory: Yes Pneumonia, Chronic Bronchitis Currently Using CPAP: No Currently Using BIPAP: No Cardiac: No Neurological: No Genitourinary: Yes Benign Prostatic Hyperpl Gastrointestinal: Yes (PAST HERNIA) Musculoskeletal: Yes (PAIN IN LEFT SHOULDER) Arthritis Endocrine: No HEENT: Yes (WEARS GLASSES) Cancer: No Psychosocial: No Integumentary: No Blood Disorders: No Physical Exam Vital Signs - First Documented 03/29/22 19:26 Temp 36.9 Pulse 69 Resp 18 B/P (MAP) 121/89 (100) Pulse Ox 94 O2 Delivery Room Air Capillary Refill : Less Than 3 Seconds Height: '" Weight: lbs. oz. kg; 30.00 BMI Method: General Appearance: WD/WN, no apparent distress HEENT: PERRL/EOMI, normal ENT inspection, TMs normal, pharynx normal Neck: non-tender, full range of motion, supple, normal inspection Respiratory: chest non-tender, lungs clear, normal breath sounds, no respiratory distress, no accessory muscle use Cardiovascular: regular rate, rhythm Gastrointestinal: normal bowel sounds, non tender, soft Extremities: normal range of motion, non-tender, normal inspection, no pedal edema, no calf tenderness Neurologic/Psychiatric: no motor/sensory deficits, alert, normal mood/affect, oriented x 3 Skin: normal color, warm/dry Progress/Results/Core Measures Suspected Sepsis SIRS Temperature: Pulse: 69 Respiratory Rate: 18 Blood Pressure 121 /89 Mean: 100 Results/Orders Lab Results Laboratory Tests Test 03/29/22 19:26 Range/Units Influenza Type A (RT-PCR) Not Detected Not Detecte Influenza Type B (RT-PCR) Not Detected Not Detecte SARS-CoV-2 RNA (RT-PCR) Detected H Not Detecte My Orders Orders - AIDAN LAI APRN Covid 19 Inhouse Test (03/29/22 19:25) Influenza A And B By Pcr (03/29/22 19:25) Isolation Central Supply Req (03/29/22 19:25) Vital Signs/I&O 03/29/22 03/29/22 19:26 20:20 Temp 36.9 Pulse 69 72 Resp 18 18 B/P (MAP) 121/89 (100) 122/74 Pulse Ox 94 94 O2 Delivery Room Air Room Air Capillary Refill : Less Than 3 Seconds Blood Pressure Mean: 100 Progress Note : Progress Note Patient is nontoxic and well-hydrated on exam. No adventitious lung sounds or increased work of breathing noted. Patient was ambulatory to the room without issue is awake alert answers all questions appropriately. Orders placed for rapid COVID and flu test. Patient is positive for COVID. Discussed supportive care and anticipatory guidance. Will discharge home. Follow-up with PCP. Return precautions urgent symptomology discussed. Patient verbalized understanding. Departure Impression Primary Impression: COVID-19 Disposition: 01 HOME, SELF-CARE Condition: Stable Transfer Transfer Reason: Exceeds level of care Departure-Patient Inst. Decision time for Depature: 20:05 Referrals: NO,LOCAL PHYSICIAN (PCP/Family) Primary Care Physician Patient Instructions: COVID-19 (DC) AIDAN LAI APRN Mar 29, 2022 20:08
[2022-03-29 20:20] VITALS: BP 122/74
== END 2022-03-29 20:21 | disposition home or self-care (01) ==
LOC: EDUNIT# 18:33 → ER 18:35
DX: U07.1 COVID-19 (principal); R05.9 Cough, unspecified; R09.81 Nasal congestion; F17.210 Nicotine dependence, cigarettes, uncomplicated; Z28.310 Unvaccinated for COVID-19
CPT/HCPCS: 87636; 99283